=== PATIENT | female | born 1935 | race Caucasian/White ===

== ENCOUNTER 2018-08-15 10:43 | Inpatient (IN) | payer OTHER ==
[~2018-08-15] VITALS: Ht 175.3 cm; Wt 78.0 kg
[~2018-08-15 10:43] MED LIST: ALLEGRA180 MG PO; ALPRAZOLAM 0.0.25 M1 PO; AMBIEN 5 MG TABL5 M1 PO; CALCIUM 600 +1 EAC1 PO; CENTRUM SILVER1 EAC1 PO; DILTIAZEM ER120 MG PO; FISH OIL 1,001000 M2 PO; HYDROCHLOROTHIA25 M1 PO; MIRALAX255 GM PO; TOPROL XL25 MG PO; ULTRAM 50MG TAB50 MG PO; VITAMIN E400 UNIT PO
[2018-08-15 10:48] VITALS: BP 186/89
[2018-08-15 11:13] LABS: APTT 27.5 Seconds (24.5-32.8); INR 1.1; PROTIME 11.1 Seconds (9.3-11.4)
[2018-08-15 11:23] LABS: BE(vivo) 1.3 mmol/L (-2 to +3); HCO3 25.9 mmol/L (22.0-26.0); PCO2 41.3 mmHg (35.0-45.0); PO2 74.4 mmHg (80.0-100.0); pH 7.416 (7.360-7.450); sO2 95.2 % (92.0-98.0)
[2018-08-15 11:48] LABS: POTASSIUM 3.4 mmol/L (3.5-5.1); TOTAL BILIRUBIN 1.1 mg/dL (<0.1-1.0); TOTAL PROTEIN 6.8 g/dL (6.4-8.2)
[2018-08-15] MEDS ORDERED: LEVOXYL50 MCG PO (11:50)
[2018-08-15] MEDS ORDERED: POTASSIUM CHLO10 MEQ PO (11:50)
[2018-08-15] MEDS ORDERED: ESCITALOPRAM OXA5 MG PO (11:52)
[2018-08-15] MEDS ORDERED: ASPIR 8181 M1 PO (11:53)
[2018-08-15 11:55] LABS: CALCIUM 9.5 mg/dL (8.5-10.1)
[2018-08-15 11:59] LABS: URINE BILIRUBIN NEGATIVE (Negative); URINE BLOOD NEGATIVE (Negative); URINE CLARITY CLEAR; URINE COLOR YELLOW; URINE GLUCOSE-RANDOM* NEGATIVE (Negative); URINE KETONES NEGATIVE (Negative); URINE LEUKOCYTES NEGATIVE (Negative); URINE NITRITE NEGATIVE (Negative); URINE PROTEIN (DIPSTICK) NEGATIVE (Negative); URINE SPECIFIC GRAVITY <= 1.005 (1.005-1.035); URINE UROBILINOGEN 0.2 E.U./dl (0.2-1.0)
[2018-08-15 12:13] VITALS: BP 174/82
[2018-08-15 12:22] LABS: CHOLESTEROL 177 mg/dL (<200); HDL CHOLESTEROL 65 mg/dL (>40); LDL CHOLESTEROL 97 mg/dL (<100); TC:HDL 2.7 Ratio (Not establshd); TRIGLYCERIDE 79 mg/dL (<150); VLDL 16 mg/dL (<40)
[2018-08-15 12:27] VITALS: BP 193/79
--- NOTE | 2018-08-15 12:37 | NUR ---
REPORT CALLED, MRI WANTS PT BEFORE GOING TO THE FLOOR, THIS CAUSES DELAY FOR PT TO GO TO ROOM
[2018-08-15 12:47] LABS: TSH 3.99 uIU/mL (0.358-3.740)
[2018-08-15] MEDS ORDERED: TOPROL XL25 MG PO (13:09)
[2018-08-15] MEDS ORDERED: MIRALAX17 GM PO (13:12)
[2018-08-15] MEDS ORDERED: AMBIEN 5 MG TABL5 M1 PO (13:15)
[2018-08-15] MEDS ORDERED: GAS-X125 M1 PO (13:16)
[2018-08-15] MEDS ORDERED: MAXZIDE-25 MG1 EACH PO (13:17)
[2018-08-15 13:56] LABS: FOLIC ACID 73.1 ng/mL (8.6-58.9)
[2018-08-15 14:43] VITALS: BP 185/80
[2018-08-15 14:48] LABS: POC BUN 14 mg/dL (7-18); POC CA IONIZED 4.9 mg/dL (4.5-5.3); POC CHLORIDE 94 mmol/L (98-107); POC CREATININE 0.9 mg/dL (0.6-1.3); POC GLUCOSE 130 mg/dL (70-99); POC HEMOGLOBIN 15.6 g/dL (12.0-15.0); POC POTASSIUM 3.3 mmol/L (3.5-5.1); POC SODIUM 140 mmol/L (136-145)
--- NOTE | 2018-08-15 14:48 | EKG ---
[address] [place] [address] ELECTROCARDIOGRAM REPORT Name: SAI NAILS Room #: 450-P ADM IN M.R.#: [id number] Admission: 08/15/18 Attend Phys: Vandana Frias Discharge: Date of : 31 Report #: [id number] THIS REPORT FOR: //name// [facility] ED Test Date: 2018-08-15 Test Time: 11:13:16 Pat Name: SAI NAILS Department: Room: [facility] Gender: F Senior Radiation Therapist: ROSANNE : 1935 Requested By: Tanner Haro Order Number: [id number] MD: Federico Chun Measurements Intervals [place] Rate: 71 P: 60 MS: 176 QRS: 13 QRSD: 89 T: 255 QT: 346 QTc: 376 Interpretive Statements Sinus rhythm Probable left atrial enlargement Nonspecific T abnormalities, diffuse leads Compared to ECG 12/15/2009 20:45:25 Nonspecific change in the ST and T-wave segments Electronically Signed On 08-15-2018 14:47:41 SHOP CLERK by Federico Chun [email or web address] <ELECTRONICALLY SIGNED> By: Federico Chun MD, [facility] 08/15/18 1447 1113 1113 Federico Chun MD, [facility] /EPI
--- NOTE | 2018-08-15 15:14 | 2DMMODE ---
[facility] [place] [address] 2 D/M-MODE ECHOCARDIOGRAM Name: SAI NAILS Room #: 450-P [facility] IN [facility].#: [id number] Admission: 08/15/18 Attend Phys: Vandana Mejia Discharge: Date of : 31 Date of Service: 08/15/18 1514 Report #: [id number] THIS REPORT FOR: //name// APPROVED REPORT Study performed: 08/15/2018 14:08:41 EXAM: Comprehensive 2D, Doppler, and color-flow Echocardiogram Patient Location: ER Status: routine BSA: 1.95 HR: 65 bpm BP: 130/86 mmHg Rhythm: NSR Other Information Study Quality: Adequate Indications CVA/TIA Echo Enhancing Agent Indication: Rule out Shunt Agent(s) / Amount(s) Used: Agitated Saline 7 cc 2D Dimensions RVDd: 36.74 mm IVSd: 9.15 (7-11mm) LVOT Diam: 18.26 (18-24mm) LVDd: 45.74 mm PWd: 9.65 (7-11mm) Ascending Ao: 33.36 (22-36mm) LVDs: 23.31 (25-40mm) Left Atrium: 38.15 (27-40mm) Aortic Root: 26.91 mm Volumes Left Atrial Volume (Systole) Single Plane 4CH: 42.98 mL Single Plane 2CH: 44.98 mL Aortic Valve AoV Peak Emanuel.: 1.27 m/s AO Peak Gr.: 6.42 mmHg AO Mean Gr.: 3.11 mmHg AO V2 Mean: 0.82 m/s AO V2 VTI: 30.69 cm [facility] [address] [address] 2 D/M-MODE ECHOCARDIOGRAM Name: SAI NAILS Room #: 450-P [facility]#: [id number] Admission: 08/15/18 Attend Phys: Vandana Merlos [facility] Discharge: Date of : 31 Date of Service: 08/15/18 1514 Report #: [id number] Mitral Valve E/A Ratio: 0.7 MV Decel. Time: 395.02 ms MV E Max Emanuel.: 0.72 m/s MV A Emanuel.: 0.97 m/s MV PHT: 114.56 ms IVRT: 117.65 ms Pulmonary Valve PV Peak Emanuel.: 0.89 m/s PV Peak Gr.: 3.18 mmHg ME End Vmax: 1.43 m/s Pulmonary Vein P Vein S: 0.70 m/s P Vein A: 0.29 m/s P Vein D: 0.44 m/s P Vein A Dur.: 138.4 msec P Vein S/D Ratio: 1.59 Tricuspid Valve TR Peak Emanuel.: 2.87 m/s TR Peak Gr.: 32.87 mmHg Left Ventricle The left ventricle is normal size. There is normal LV segmental wall motion. There is normal left ventricular wall thickness. The left ventricular systolic function is normal. The left ventricular ejection fraction is within the normal range. LVEF is 60-65%. Grade I - abnormal relaxation pattern. Right Ventricle The right ventricle is normal size. The right ventricular systolic function is normal. Atria The left atrium size is normal. Interatrial septum is intact without evidence of ASD or PFO. The right atrium size is normal. Aortic Valve The aortic valve is normal in structure. No aortic regurgitation is present. There is no aortic valvular stenosis. Mitral Valve Mitral annular calcification. Mild mitral regurgitation. No evidence of mitral valve stenosis. Tricuspid Valve [place] [id number] 2 D/M-MODE ECHOCARDIOGRAM Name: SAI NAILS Room #: 450-P [facility] IN ..#: [id number] Admission: 08/15/18 Attend Phys: Vandana Mejia Discharge: Date of : 31 Date of Service: 08/15/18 1514 Report #: [id number] The tricuspid valve is normal in structure. Mild tricuspid regurgitation. Estimated PAP 38 mmHg. Pulmonic Valve The pulmonary valve is normal in structure. Trace to mild pulmonic regurgitation. Great Vessels The aortic root is normal in size. The ascending aorta is normal in size. IVC is normal in size and collapses >50% with inspiration. Pericardium There is no pericardial effusion. <Conclusion> The left ventricle is normal size. There is normal left ventricular wall thickness. The left ventricular systolic function is normal. Grade I - abnormal relaxation pattern. The right ventricle is normal size. The left atrium size is normal. Interatrial septum is intact without evidence of ASD or PFO. The aortic valve is normal in structure. Mitral annular calcification. Mild mitral regurgitation. Mild tricuspid regurgitation. Estimated PAP 38 mmHg. <ELECTRONICALLY SIGNED> By: Yaakov Bertrand MD 08/15/18 1514 1514 1514 Yaakov Bertrand MD /INF
--- NOTE | 2018-08-15 16:29 | NUR ---
PT ARRIVED ON UNIT FROM ER THIS AFTERNOON. UPON ARRIVAL PT WAS EXTREMEMLY CONFUSED AND DISORIENTED WITH NO MEMORY OF HOW SHE GOT HERE OR ANY EVENTS FROM THE DAY. AFTER SETTLING IN PT BEGAN TO REMEMBER THE EVENTS OF THE DAY AND BECAME LESS CONFUSED AND DISORIENTED, HOWEVER MEMORY REMAINS POOR. PT HX WAS DIFFICULT TO COMPLETE AND HER MEMORY IS VERY POOR. ADMISSION ASSESMENT COMPLETE, FAMILY NOTIFIED (CLOSEST FAMILY IS COUSING IN [facility] AND COUSIN'S DAUGHTER IN ). PT RESTING COMFORTALBY, BP ELEVATED HOWEVER PHYSICIAN NOTIFIED AND NOT FURTHER ORDERS AT THIS TIME. WILL CONTINUE TO MONITOR.
[2018-08-15 19:50] VITALS: BP 132/65
--- NOTE | 2018-08-16 03:49 | NUR ---
Assumed care at 1845. Pt resting in bed. She hasnt had any episode of memory as of yet with me. Shes been using a walker to the bathroom. No visible skin issue. Breathing even and unlabored. Denies chest pain. No identified needs at the moment. Will continue to monitor.
[2018-08-16 05:10] VITALS: BP 121/51
[2018-08-16 08:00] VITALS: BP 147/59
--- NOTE | 2018-08-16 10:00 | NUR ---
lois visited with pt at bedside, she was up in recliner chair, a & o x 3, and able to make her needs know. intro to lois, transition of care, home health and dcp " you mean i am going home today, i told that that i need to have my bowels looked at before i go home and supposed to see GI, thought just came her for confusion and that is not the case"/jose. education that did not have dc orders now and need to be ready for when gives orders. " oh ok, had xray on my stomach before. 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 live alone in [facility] [address] [facility]. have 2 steps with handrails on both side into house and have ramp. have 10-12 steps to basement but i do not have to go down there, laundry is in the garage. have cleaning 1 x month. i do laundry, cook, change bedding. have life alert necklace. manage own medication and still drive but do not drive in bad weather, that is why called cab and they brought me here which is ok but was going to go to [facility]. use [facility], have cane but move faster with walker. juan works so i will need cab and i will pay for it myself with dc home. need to get things figured out with meagan before going home"/pt. will cont following as needed for dc needs. pt will possible need taxi/cab, if needed call dry cleaning checker cab [phone] pt stated she can pay for her own cab ride home if needed.
[2018-08-16 15:00] VITALS: BP 148/64
--- NOTE | 2018-08-16 18:28 | NUR ---
PT STABLE THROUGHOUT SHIFT. PT WAS SEEN BY GI, HAD EEG AND CT SCAN, BOTH OF WHICH SHE TOLERATED WELL. PT RESTING COMFORTABLY.
[2018-08-16 19:45] VITALS: BP 150/59
--- NOTE | 2018-08-17 02:22 | NUR ---
PT WAS AGITATED BEGINNING OF SHIFT PT WAS ABLE TO SETTLE DOWN AND GET SOME REST PT USED CALL LIGHT EFFECTIVELY NO ISSUES OVERNIGHT.
[2018-08-17 03:58] VITALS: BP 128/59
[2018-08-17 05:21] LABS: HEMATOCRIT 41.8 % (37.0-47.0); HEMOGLOBIN 14.6 gm/dL (12.0-15.0); MCH 31.5 pg (26.0-34.0); MCHC 34.8 g/dL (28.0-37.0); MCV 90.5 fL (80.0-100.0); RBC 4.62 mil/uL (4.20-5.00); RDW 13.6 % (10.5-14.5); WBC 4.8 thou/uL (4.0-11.0)
[2018-08-17 05:37] LABS: ALBUMIN 3.1 g/dL (3.4-5.0); CALCIUM 9.1 mg/dL (8.5-10.1); CREATININE 0.8 mg/dL (0.6-1.0); TOTAL BILIRUBIN 0.9 mg/dL (<0.1-1.0)
[2018-08-17 05:42] LABS: POTASSIUM 2.8 mmol/L (3.5-5.1)
[2018-08-17 08:39] VITALS: BP 163/66
--- NOTE | 2018-08-17 15:50 | NUR ---
PT ASSESSED AT START OF SHIFT. CALM AND PLEASANT THIS AM. STANDBY ASSIST TO THE BR. HAD SM CONSTIPATED BM. GI SAW PT AND ORDERED COLONOSCOPY FOR SUNDAY. SUNDAY TO HAVE CLEARS AND START PREP AT 1300. PT VERY AGITATED THIS AFTERNOON IV PUMP ALARMED FOR A WHILE BEFORE BEING RESET. UP IN THE CHAIR FOR SEVERAL HOURS. IM BETTER MOOD VISITORS HERE.
[2018-08-17 17:30] VITALS: BP 166/67
[2018-08-17 20:23] VITALS: BP 151/64
[2018-08-17 22:30] VITALS: BP 156/77
--- NOTE | 2018-08-18 03:07 | NUR ---
Pt transferred to unit from approx 2100. Pt states she has not slept much and wants to rest tonight. Miralax and sleeping med administered per pt request. Miralax prep will start on 08/18 at 1300 for pt scheduled colonoscopy on 08/19. Call light within reach. Will continue to monitor.
[2018-08-18 04:30] VITALS: BP 146/73
[2018-08-18 05:58] LABS: HEMOGLOBIN 14.3 gm/dL (12.0-15.0); MCH 31.1 pg (26.0-34.0); MCV 88.8 fL (80.0-100.0); RBC 4.62 mil/uL (4.20-5.00); RDW 13.7 % (10.5-14.5); WBC 4.5 thou/uL (4.0-11.0)
[2018-08-18 06:09] LABS: CREATININE 0.8 mg/dL (0.6-1.0); POTASSIUM 3.5 mmol/L (3.5-5.1)
[2018-08-18 20:38] VITALS: BP 145/64
--- NOTE | 2018-08-19 02:35 | NUR ---
Assumed care of pt at 1900. Pt alert and oriented x4. Bowel prep completed. Stool is not yet clear. Will continue to monitor overnight and report in am. NPO after midnight. No c/o pain. Call light within reach.
[2018-08-19 05:29] VITALS: BP 131/62
[2018-08-19 06:19] LABS: CREATININE 0.8 mg/dL (0.6-1.0); POTASSIUM 3.2 mmol/L (3.5-5.1)
--- NOTE | 2018-08-19 09:54 | HC ---
[facility] [place] [address] CONSULTATION Name: JAQUISAI E Room #: 418-P [facility] IN M.R.#: [id number] Admission: 08/15/18 Attend Phys: Vandana Frias Discharge: Date of : 31 Report #: [id number] THIS REPORT FOR: //name// CC: Gilberto Frias DATE OF SERVICE: 08/15/2018 HISTORY OF PRESENT ILLNESS: This is an 82-year-old female patient who was admitted after an episode of amnesia. This patient indicates that she was able to talk, but she had no short term memory. Apparently, her long-term memory was okay. She has no speech difficulty and no focal deficit with it. The symptom has rapidly becoming better and in fact has mostly resolved. REVIEW OF SYSTEMS: Positive for multiple problems. She had hepatitis C. She said she had a stroke following it. She said she could not tolerate the treatment for hepatitis C. She had a stroke in the past. I do not know what exactly that stroke has shown or caused any deficit. She is complaining of a lot of colon resections. She usually goes to [facility] for that. She said she had a history of colon cancer. She has a history of hypertension. She does have a history of anxiety. In fact, she took Xanax this morning because she was feeling anxious. She believes she was stressed out in last few days. REVIEW OF SYSTEMS: A 14-point review of system was carried out. She is not complaining of any new eye, ENT, cardiac, respiratory, GI, , musculoskeletal, constitutional, dermatological, hematological, psychiatric, throat, allergic symptom associated with present symptomatology. PAST MEDICAL HISTORY: Positive for stroke, but history is not very clear. FAMILY HISTORY: Negative for early age stroke. SOCIAL HISTORY: She does not smoke. PHYSICAL EXAMINATION: Indicate that she is alert, responsive. She knows what month it is. Her memory, fund of knowledge is at her baseline. Her speech is at her baseline. Cranial nerve examination 2-12 looks unremarkable. Strength, sensation, reflexes and tone are unremarkable. No cerebellar sign. I could not look at the patient's fundus. Pulses are difficult to feel. She has no edema, cyanosis or jaundice. Cardiac examination is unremarkable. No respiratory difficulty or rhonchi was noticed. She has no thyroid mass. She is reasonably well-developed individual who does not have any dysmorphic features of eyes, ears and face. Her vision and hearing looks adequate. Blood pressure is 185/80, respirations 19, pulse is 67, temperature is 97.3. LABORATORY DATA: Her hemoglobin is 15.6. Sodium is normal. Her GFR was 53. [address] [address] CONSULTATION Name: JAQUISAI Jamila Room #: 418-P [facility] IN M.R.#: [id number] Admission: 08/15/18 Attend Phys: Vandana Frias Discharge: Date of : 31 Report #: [id number] IMPRESSION: This patient has transient global amnesia. Because of the prior history of stroke, she needed transient ischemic attack and stroke workup. I had suggested an MRI and MRA in this patient. It looks like they did CT angiogram in the Emergency Room. The CT angiogram did not show any abnormality. Because of that, I will cancel the MRA, but we will still do an MRI. We will also get an EEG done. If they are also unremarkable, then most likely this patient had transient global amnesia, which appeared to be the clinical diagnosis anyway. RECOMMENDATIONS: I will await this workup. If above workup is unremarkable, then I think she should be managed with the transient global amnesia. She is complaining of lot of other symptoms including psychiatric symptoms, colon symptoms, etc. That may have to be addressed. She has multiple questions on that and I asked her to refer that question to her psychiatry adult physician. <ELECTRONICALLY SIGNED> By: Diego Huber MD 08/19/18 0954 1610 [id number] Deigo Huber MD /nt
--- NOTE | 2018-08-19 09:55 | EEG ---
[facility] [place] [address] ELECTROENCEPHALOGRAM Name: SAI NAILS Room #: 418-P [facility] IN M.R.#: [id number] Admission: 08/15/18 Attend Phys: Vandana Lamb Discharge: Date of : 31 Report #: [id number] THIS REPORT FOR: //name// CC: Gilberto Frias DATE OF SERVICE: 08/16/2018 This patient is being evaluated for transient global amnesia. EEG was done by placing the electrodes by standard 10-20 system of electrode placement. Both referential and sequential montages were used for recording. Background activity in this patient's EEG is about 9 Hz and 30 microvolts. This is a symmetrical activity. The patient became drowsy that is associated with bilateral slowing. Photic stimulation was unremarkable. Throughout the record, no active epileptiform activity was noticed. IMPRESSION: This patient's EEG is within normal limits. Thank you very much for this referral. <ELECTRONICALLY SIGNED> By: Diego Huber MD 08/19/18 0955 1604 1626 Diego Huber MD /nt
[2018-08-19 13:58] LABS: MAGNESIUM 1.9 mg/dL (1.8-2.4)
--- NOTE | 2018-08-19 14:39 | NUR ---
PT A&OX4, AMBULATES WITH WALKER, ASSIST X1, IV INTACT IN R AC IFUSING FLUIDS W/O COMPS. B/P 174/72 FACE WAS SLIGHLY FLUSHED. MORNING BETA BLOCKERS GIVEN SUGGESTED WUTH A SIP OF WATER, GI LAB HERE TO EQUIPMENT ANALYST PT FOR PROCEDURE.
[2018-08-19 20:18] VITALS: BP 139/57
[2018-08-20 05:24] VITALS: BP 133/59
--- NOTE | 2018-08-20 05:29 | NUR ---
ANSWERS QUESTIONS APPROPRIATELY. ALERT AND ORIENTED X 4. UP TO BATHROOM USING WALKER AND X 1 STAND BY ASSIST. DENIES PAIN. ABD ROUND. POSITIVE BOWEL SOUNDS. BOWEL PREP, COLONOSCOPY DONE 08/19/18. ANXIOUS AT TIMES. RESPONDS WELL TO EMOTIONAL SUPPORT PROVIDED.
[2018-08-20 07:45] VITALS: BP 154/63
--- NOTE | 2018-08-20 10:04 | NUR ---
ASSUMED CARE OF PT AT 0700. ASSESSMENT COMPLETED. A&O,X4. FUSSY AT TIMES. C/O ABD/RECTUM PRESSURE, DENIES PAIN. STATES SHE FEELS LIKE SHE HAS TO HAVE A BM, EVEN AFTER RECENT COLOSCOPY AND IS NOT PASSING FLATUS. ACITVE BOWEL SOUNDS. NO PROBLEMS VOIDING. DENIES N/V. HX HTN, BP MEDS GIVEN ORDERED. ROOM AIR. DENIES SOA. SKIN INTACT. NO EDEMA. WILL CONTINUE TO MONITOR.
[2018-08-20 13:40] VITALS: BP 154/63
--- NOTE | 2018-08-20 15:05 | NUR ---
NEW DISCHARGE ORDERS. DISCHARGE INFORMATION DISCUSSED WITH PT AND FRIEND AT BEDSIDE. PT STATES NO QUESTIONS OR CONCERNS. PT TEACHES BACK FOLLOW UP OUTPATIENT WITH GI. NO NEW SCRIPTS GIVEN. IV REMOVED, NO BLEEDING. PT DRESSED IN PERSONAL CLOTHES AND HAS BELONGINGS. HOME MEDS WERE RETRIEVED FROM PHARMACY. PT LEFT IN STABLE CONDITION VIA WHEELCHAIR AT APPROX 15:00.
--- NOTE | 2018-08-21 11:09 | PATH ---
[facility] [place] [address] PATHOLOGY RPT PROCEDURE Name: ALEXANDRA NAILS Room #: 418-P DIS IN M.R.#: [id number] Admission: 08/15/18 Date of : 31 Discharge: 08/20/18 Report #: [id number] Path Case #: [id number] [facility] Accession Number: [id number] . 01 Material submitted: . TRANSVERSE COLON POLYP BIOPSY . 01 Clinical history: . Pre-OP DX: History of colon cancer with metastasis Post-OP DX: Colon polyp . 02 Diagnosis: Polyp, transverse colon polyp, endoscopic biopsy: - Inflamed hyperplastic polyp. - Negative for dysplasia. (IUV:miller supervisor; 08/20/2018) MBR/08/20/2018 . 02 Electronically signed: . Madalyn Metz MD, Pathologist NPI- [id number] . 01 Gross description: . Received in formalin labeled "Alexandra Nails, transverse colon polyp," are 3 segments of borrego soft tissue measuring 0.5 x 0.2 x 0.2 cm in aggregate dimensions and ranging from 0.2 to 0.5 cm in maximum dimension. The specimen is submitted entirely in cassette A1. (TSD; 08/19/2018) TOB/TOB . 02 Pathologist provided ICD-10: K63.5 . 02 CPT . 296533 Specimen Comment: A courtesy copy of this report has been sent to Specimen Comment: [phone], , . Specimen Comment: Report sent to ,DR CISNEROS / DR RESENDIZ Specimen Comment: A duplicate report has been generated due to demographic updates. Performed at: 01 [place] [id number] [address] [id number] MD William Eaton MD Phone: [phone] Performed at: [address] [id number] [address] [address] PATHOLOGY RPT PROCEDURE Name: DEBORAH NAILSKEYLA Marino Room #: 418-P DIS IN M.R.#: [id number] Admission: 08/15/18 Date of : 31 Discharge: 08/20/18 Report #: [id number] Path Case #: [id number] MD Madalyn Metz MD Phone: [phone]
== END 2018-08-20 15:00 | disposition home or self-care (01) | DRG 67 ==
LOC: ER 10:43 → 4W 11:59 → EROBS 11:59 → 4W 14:39 → 4E 08-17 21:47 → ENTRNSPT 08-20 14:51 → EDTRNSPTSTS 08-20 14:53 → 4E 08-20 15:00
PROVIDERS: Emergency Medicine; Internal Medicine; Nurse Practitioner; ADMIT Hospitalist
PROC: 0DBL8ZX Excision of Transverse Colon, Via Natural or Artificial Opening Endoscopic, Diagnostic (ICD-10-PCS; principal; 2018-08-19)
DX: I65.23 Occlusion and stenosis of bilateral carotid arteries (principal); G93.41 Metabolic encephalopathy; E44.1 Mild protein-calorie malnutrition; I10 Essential (primary) hypertension; K74.60 Unspecified cirrhosis of liver; M19.90 Unspecified osteoarthritis, unspecified site; F41.9 Anxiety disorder, unspecified; H57.89 Other specified disorders of eye and adnexa; K59.09 Other constipation; E87.6 Hypokalemia; K57.30 Diverticulosis of large intestine without perforation or abscess without bleeding; K64.8 Other hemorrhoids; G47.00 Insomnia, unspecified; F32.9 Major depressive disorder, single episode, unspecified; M81.0 Age-related osteoporosis without current pathological fracture; K58.1 Irritable bowel syndrome with constipation; K63.5 Polyp of colon; B18.2 Chronic viral hepatitis C; E03.9 Hypothyroidism, unspecified; E78.5 Hyperlipidemia, unspecified; Z28.21 Immunization not carried out because of patient refusal; Z88.0 Allergy status to penicillin; Z79.899 Other long term (current) drug therapy; Z79.82 Long term (current) use of aspirin; Z85.038 Personal history of other malignant neoplasm of large intestine; Z85.05 Personal history of malignant neoplasm of liver; Z86.73 Personal history of transient ischemic attack (TIA), and cerebral infarction without residual deficits; Z91.041 Radiographic dye allergy status; Z90.49 Acquired absence of other specified parts of digestive tract; Z68.25 Body mass index [BMI] 25.0-25.9, adult
CPT/HCPCS: 10045; 10783; 62110; 62900; 70005

== ENCOUNTER → 2021-01-04 | Outpatient (CLI) | payer OTHER ==
[~2021-01-04] MED LIST changes: +ASPIR 8181 M1 PO; +ESCITALOPRAM OXA5 MG PO; +GAS-X125 M1 PO; +LEVOXYL50 MCG PO; +MAXZIDE-25 MG1 EACH PO; +MIRALAX17 GM PO; +POTASSIUM CHLO10 MEQ PO
== END ==
LOC: MRI 09:30
PROVIDERS: ATTEND Physical Medicine & Rehabilitation Sports Medicine
DX: S76.011A Strain of muscle, fascia and tendon of right hip, initial encounter (principal); S76.012A Strain of muscle, fascia and tendon of left hip, initial encounter; M47.26 Other spondylosis with radiculopathy, lumbar region; M47.27 Other spondylosis with radiculopathy, lumbosacral region; M48.061 Spinal stenosis, lumbar region without neurogenic claudication; M48.07 Spinal stenosis, lumbosacral region; X58.XXXA Exposure to other specified factors, initial encounter; Y93.89 Activity, other specified; Y92.89 Other specified places as the place of occurrence of the external cause; Y99.8 Other external cause status